=== PATIENT | female | born 1990 | race Hispanic/Latino ===

== ENCOUNTER 2021-06-05 11:01 | Outpatient (CLI) | payer OTHER | END 2021-06-05 11:02 | disposition home or self-care (01) | LOC: CSHULT 11:01 | PROVIDERS: ATTEND Family Medicine | DX: O09.892 Supervision of other high risk pregnancies, second trimester (principal); Z3A.20 20 weeks gestation of pregnancy | CPT/HCPCS: 76805 ==

== ENCOUNTER 2022-04-05 10:41 | Outpatient (CLI) | payer OTHER | END 2022-04-05 10:42 | disposition home or self-care (01) | LOC: CSHCT 10:41 | PROVIDERS: ATTEND Nurse Practitioner Family | DX: N12 Tubulo-interstitial nephritis, not specified as acute or chronic (principal); R91.8 Other nonspecific abnormal finding of lung field | CPT/HCPCS: 74150 ==